=== PATIENT | female | born 1985 | race African-American/Black ===

== ENCOUNTER 2025-02-16 22:03 | Emergency (ER) | payer OTHER, MEDICAID ==
[~2025-02-16] VITALS: Ht 167.6 cm; Wt 64.0 kg
[2025-02-16] MEDS: MORPHINE SULFATE 4 MG/ML INJ (FOR IV/IM USE) IV ONE (23:24)
[2025-02-16] MEDS: DIPHENHYDRAMINE 50MG/ML VIAL IV ONE (23:29)
[2025-02-16] MEDS: ONDANSETRON HCL 4MG/2ML INJ IV ONE (23:29)
[2025-02-17] MEDS ORDERED: NAPR-1176 MT (01:31)
[2025-02-17 01:32] VITALS: O2SAT 100
[2025-02-17] MEDS: PROPOFOL 200MG/20ML VIAL IV ONE (01:38)
[2025-02-17] MEDS ORDERED: HYDR-4001 MT (04:37)
[2025-02-17] MEDS: HYDROCODONE/ACETAMINOPHEN 10/325MG TABLET PO ONE (05:11)
[2025-02-17 05:16] VITALS: BP 136/70; PULSE 64; RESP 13; TEMP 36.7; O2SAT 97
== END 2025-02-17 05:28 | disposition home or self-care (01) ==
LOC: ER 22:03
DX: S52.591A Other fractures of lower end of right radius, initial encounter for closed fracture (principal); E11.9 Type 2 diabetes mellitus without complications; Z79.1 Long term (current) use of non-steroidal anti-inflammatories (NSAID); Z88.5 Allergy status to narcotic agent; V89.2XXA Person injured in unspecified motor-vehicle accident, traffic, initial encounter; Y93.89 Activity, other specified; Y92.410 Unspecified street and highway as the place of occurrence of the external cause; Y99.8 Other external cause status
CPT/HCPCS: 25605; 73090; 73100; 73120; 96374; 96375; 99152; 99285; J1200; J2270; J2405; J2704